=== PATIENT | male | born 1950 | race Caucasian/White ===

== ENCOUNTER 2018-05-02 18:39 | Emergency (ER) | payer MEDICARE | END 2018-05-02 21:16 | disposition home or self-care (01) | LOC: M ED 18:39 | DX: F43.0 Acute stress reaction (principal); F41.9 Anxiety disorder, unspecified; I48.91 Unspecified atrial fibrillation; I10 Essential (primary) hypertension; J45.909 Unspecified asthma, uncomplicated; E07.9 Disorder of thyroid, unspecified; Z98.890 Other specified postprocedural states; Z79.899 Other long term (current) drug therapy; Z79.01 Long term (current) use of anticoagulants; Z79.4 Long term (current) use of insulin; Z79.890 Hormone replacement therapy | CPT/HCPCS: 99284 ==

== ENCOUNTER 2022-07-28 20:22 | Emergency (ER) | payer MEDICARE ==
[~2022-07-28] VITALS: Ht 182.9 cm; Wt 102.0 kg
[~2022-07-28 20:22] MED LIST: ATOR40TA75 PO; BRIM1OPD OU; BYDU1INJ SC; CARD180C4 PO; COUM1TAB17 PO; COUM7.5T6 PO; DOXY100T27 PO; FURO40TA2 PO; HYDR50CA2 PO; LANTINJ4 SC; LEVO200T4 PO; LISI40TA4 PO; METF10004 PO; NITR100C2 PO; NITR4TASL SL; NORC1TAB7 PO; POTA1TAB23 PO; PRIL20TA2 PO; TERA2CAP3 PO; VITATAB11 PO
[2022-07-28] MEDS ORDERED: LORazepam 2 MG/ML VIAL IM STA (21:27)
[2022-07-28] MEDS ORDERED: HALOPERIDOL 5MG/ML VIAL (J1630 PER 1) IM STA (21:27)
[2022-07-28 22:21] VITALS: BP 129/65
== END 2022-07-28 22:40 | disposition home or self-care (01) ==
LOC: M ED 20:22 → EDBD 20:22 → M ED 22:40
DX: F03.90 Unspecified dementia, unspecified severity, without behavioral disturbance, psychotic disturbance, mood disturbance, and anxiety (principal); E11.9 Type 2 diabetes mellitus without complications; K21.9 Gastro-esophageal reflux disease without esophagitis; Z79.4 Long term (current) use of insulin; Z79.890 Hormone replacement therapy; Z79.01 Long term (current) use of anticoagulants; Z79.84 Long term (current) use of oral hypoglycemic drugs; Z79.899 Other long term (current) drug therapy
CPT/HCPCS: 96372; 99284; J1630; J2060